=== PATIENT | male | born 1960 | race Caucasian/White ===

== ENCOUNTER 2017-10-21 15:43 | Inpatient (IN) | payer OTHER ==
[~2017-10-21] VITALS: Ht 177.8 cm; Wt 108.7 kg
[2017-10-21 16:09] VITALS: BP 136/69; PULSE 103; PULSE 18; TEMP 98.7
[2017-10-21] MEDS ORDERED: VITAMIND3 5000 (17:31)
[2017-10-21] MEDS ORDERED: PRINIVIL20 MG PO (17:32)
[2017-10-21] MEDS ORDERED: GLUCOTROL10 MG PO (17:32)
[2017-10-21] MEDS ORDERED: GLUCOPHAGE1000 MG PO (17:33)
[2017-10-21 19:15] VITALS: BP 133/66; PULSE 92; TEMP 99.1
[2017-10-22] VITALS (11 sets, daily range): BP systolic 107–144; BP diastolic 50–70; PULSE 70–94; TEMP 98–98.7
[2017-10-22 06:56] LABS: HEMOGLOBIN 11.4 g/dl (13.5-18.0); MEAN CELL VOLUME 85 fl (80.0-100.0); MEAN CORPUSCULAR HEMOGLOBIN 28 pg (27.0-31.0); MEAN CORPUSCULAR HGB CONC 33 g/dl (33.0-37.0); MEAN PLATELET VOLUME 9.2 fl (7.4-10.4); PLATELET COUNT 405 K/mm3 (130-400); RED BLOOD COUNT 4.08 M/mm3 (4.20-5.60); REDCELL DISTRIBUTION WIDTH-CV 13.3 % (11.5-14.5)
[2017-10-22 07:01] LABS: HEMATOCRIT 34.5 % (42.0-52.0)
[2017-10-22 07:07] LABS: CALCIUM 8.9 mg/dL (8.4-10.2); CREATININE, serum 0.8 mg/dL (0.66-1.25); POTASSIUM 3.6 mmol/L (3.4-5.0)
[2017-10-22 07:11] LABS: MAGNESIUM 2.1 mg/dL (1.6-2.3)
[2017-10-22 07:41] LABS: C-REACTIVE PROTEIN 33.5 mg/dL (0.0-0.9)
[2017-10-22 07:48] LABS: BAND 6 % (0-10); LYMPHOCYTE 12 % (20.0-51.0); NEUTROPHILS 77 % (42.0-75.2); PLATELET ESTIMATE INCREASED (NORMAL)
[2017-10-23] VITALS (7 sets, daily range): BP systolic 111–130; BP diastolic 54–70; PULSE 60–77; TEMP 97.6–98.4
[2017-10-23 08:11] LABS: BASO # 0.1 (0.0-0.2); BASO % 0.6 % (0.0-2.0); EOS # 0.2 (0.0-0.7); EOS % 1.7 % (0-4.0); GRAN # 8.7 (1.4-6.5); GRAN % 72.4 % (42.2-75.2); HEMOGLOBIN 10.2 g/dl (13.5-18.0); LYMPH # 1.8 (1.2-3.4); MEAN CELL VOLUME 85 fl (80.0-100.0); MEAN CORPUSCULAR HEMOGLOBIN 27 pg (27.0-31.0); MEAN CORPUSCULAR HGB CONC 32 g/dl (33.0-37.0); MEAN PLATELET VOLUME 9.1 fl (7.4-10.4); MONO # 1.1 (0.1-0.6); PLATELET COUNT 393 K/mm3 (130-400); RED BLOOD COUNT 3.72 M/mm3 (4.20-5.60); REDCELL DISTRIBUTION WIDTH-CV 13.5 % (11.5-14.5)
[2017-10-23 08:13] LABS: HEMATOCRIT 31.6 % (42.0-52.0)
[2017-10-23 08:27] LABS: CALCIUM 8.5 mg/dL (8.4-10.2); CREATININE, serum 0.8 mg/dL (0.66-1.25); POTASSIUM 3.8 mmol/L (3.4-5.0)
[2017-10-24] VITALS (12 sets, daily range): BP systolic 106–160; BP diastolic 64–85; PULSE 60–67; TEMP 97.4–98.6
[2017-10-25 05:00] VITALS: BP 125/66; PULSE 59; TEMP 98.1
[2017-10-25 06:54] LABS: HEMOGLOBIN 10.6 g/dl (13.5-18.0); MEAN CELL VOLUME 85 fl (80.0-100.0); MEAN CORPUSCULAR HEMOGLOBIN 28 pg (27.0-31.0); MEAN CORPUSCULAR HGB CONC 32 g/dl (33.0-37.0); MEAN PLATELET VOLUME 9.1 fl (7.4-10.4); PLATELET COUNT 437 K/mm3 (130-400); RED BLOOD COUNT 3.85 M/mm3 (4.20-5.60); REDCELL DISTRIBUTION WIDTH-CV 13.6 % (11.5-14.5)
[2017-10-25 07:00] LABS: HEMATOCRIT 32.7 % (42.0-52.0)
[2017-10-25 07:06] VITALS: BP 131/68; PULSE 56; TEMP 97.6
[2017-10-25 07:08] LABS: C-REACTIVE PROTEIN 6.4 mg/dL (0.0-0.9); CALCIUM 8.3 mg/dL (8.4-10.2); CREATININE, serum 0.83 mg/dL (0.66-1.25); POTASSIUM 3.2 mmol/L (3.4-5.0)
[2017-10-25 07:55] LABS: BAND 2 % (0-10); EOSINOPHIL 1 % (0-4); LYMPHOCYTE 31 % (20.0-51.0); MYELOCYTE 2 % (0-0); NEUTROPHILS 62 % (42.0-75.2); PLATELET ESTIMATE INCREASED (NORMAL)
[2017-10-25 07:56] LABS: TOXIC GRANULATION PRESENT
[2017-10-25 11:41] VITALS: BP 158/84; PULSE 73
[2017-10-25] MEDS ORDERED: NORCO 325 MG-51 TAB PO (14:48)
[2017-10-25] MEDS ORDERED: ASPI325T6 PO (14:48)
[2017-10-25] MEDS ORDERED: ROCEPHIN 2GM VIAL21 IV (14:49)
[2017-10-25] MEDS ORDERED: CUBICIN 500MG500 MG IV (14:50)
== END 2017-10-25 17:10 | disposition home or self-care (01) | DRG 854 ==
LOC: SURG 15:43
PROVIDERS: Family Medicine; Nurse Practitioner Family; Orthopaedic Surgery; Physician Assistant
PROC: 0Y6P0Z1 Detachment at Right 1st Toe, High, Open Approach (ICD-10-PCS; principal; 2017-10-22 14:00)
PROC: 0JBQ0ZZ Excision of Right Foot Subcutaneous Tissue and Fascia, Open Approach (ICD-10-PCS; 2017-10-22 14:00)
PROC: 0JDQ0ZZ Extraction of Right Foot Subcutaneous Tissue and Fascia, Open Approach (ICD-10-PCS; 2017-10-24)
DX: A41.9 Sepsis, unspecified organism (principal); E11.52 Type 2 diabetes mellitus with diabetic peripheral angiopathy with gangrene; I96 Gangrene, not elsewhere classified; M86.171 Other acute osteomyelitis, right ankle and foot; E11.65 Type 2 diabetes mellitus with hyperglycemia; E11.69 Type 2 diabetes mellitus with other specified complication; I10 Essential (primary) hypertension
CPT/HCPCS: 99222-AI; 99231-AI; 99232-AI; A9284; A9585; C1751; J0690; J0696; J0878; J1815; J2405; J2543; J2704; J3010; J3370; J7030; J7050

== ENCOUNTER 2023-04-09 04:50 | Observation (INO) | payer OTHER ==
[~2023-04-09] VITALS: Ht 177.8 cm; Wt 102.0 kg
[2023-04-09] VITALS (7 sets, daily range): BP systolic 106–142; BP diastolic 61–84; PULSE 81–97; TEMP 98–98.3
[~2023-04-09 04:50] MED LIST: ASPI325T6 PO; CUBICIN 500MG500 MG IV; GLUCOPHAGE1000 MG PO; GLUCOTROL10 MG PO; NORCO 325 MG-51 TAB PO; PRINIVIL20 MG PO; ROCEPHIN 2GM VIAL21 IV; VITAMIND3 5000
[2023-04-09 05:50] LABS: BASO # 0.1 K/mm3 (0.0-0.2); BASO % 0.7 % (0.0-2.0); EOS # 0.2 K/mm3 (0.0-0.7); GRAN # 5.7 K/mm3 (1.4-6.5); GRAN % 74.2 % (42.2-75.2); HEMATOCRIT 38.9 % (42.0-52.0); LYMPH % 12.7 % (20.0-51.0); MEAN CELL VOLUME 84 fl (80.0-100.0); MEAN CORPUSCULAR HEMOGLOBIN 28 pg (27-31); MEAN CORPUSCULAR HGB CONC 33 g/dl (33.0-37.0); MEAN PLATELET VOLUME 10.3 fl (7.4-10.4); MONO # 0.8 K/mm3 (0.1-0.6); PLATELET COUNT 235 K/mm3 (130-400); RED BLOOD COUNT 4.66 M/mm3 (4.20-5.60); REDCELL DISTRIBUTION WIDTH-CV 12.9 % (11.5-14.5)
[2023-04-09 06:09] LABS: ALBUMIN 3.1 gm/dL (3.4-4.8); BILIRUBIN,TOTAL 0.6 mg/dL (0.2-1.2); CALCIUM 9.3 mg/dL (8.4-10.2); CREATININE, serum 1.3 mg/dL (0.72-1.25); POTASSIUM 4.5 mmol/L (3.5-4.5); TOTAL PROTEIN 7.4 gm/dL (6.2-8.1)
[2023-04-09] MEDS ORDERED: PRIL40 PO (09:47)
--- NOTE | 2023-04-09 10:00 | NUR ---
Pt arrived to the floor from ED. Pt is alert and oriented. Wound to right foot on his sole. Approximately [address] Kothari consulted and notified of pt arrival. Oriented pt to his room and educated on room service
--- NOTE | 2023-04-09 11:24 | NUR ---
Dr Kothari has been in to see patient. He did clean wound and apply dressing. I did remove the dressing for a wound culture. Wound was dry during this, culture sent and antibiotics started. Right foot redressed. Discussed with pt that he is non weight bearing to the right foot. Stated that we would bring in crutches and walker for him to use/try. Educated that he needs to notify nursing when he needs to get up so that we can assist. Pt is pleasent and is nervous about the outcome of his foot.
--- NOTE | 2023-04-09 12:00 | NUR ---
Med rec complete, but pt reports that he has not taken his medications in over a year. Pt reports he only take prilosec OTC
--- NOTE | 2023-04-09 18:06 | NUR ---
Pt doing okay, reports minimal pain to his right foot. Pt did get up to the restroom using crutches, but was a little unsteady. Had him use a walker going back to bed and he did much better. Pt is compliant with using his call light when he needs to get up. No needs, will continue to monitor
--- NOTE | 2023-04-09 20:01 | NUR ---
report received from francesca rasheed. pt resting in bed finishing dinner. pt denies pain at this time. call light in place. all needs met at this time.
--- NOTE | 2023-04-09 21:29 | NUR ---
shift assessment complete, see documentation. pt denies pain at this time. abx still running to right ac iv, tolerating well. bs steadily decreasing from admit bs. tolerated insulin administration well. call light in place. all needs met at this time.
[2023-04-10] VITALS (11 sets, daily range): BP systolic 101–127; BP diastolic 62–80; PULSE 64–83; TEMP 98.1–98.2
[2023-04-10 05:35] LABS: BASO # 0.1 K/mm3 (0.0-0.2); BASO % 0.7 % (0.0-2.0); EOS # 0.2 K/mm3 (0.0-0.7); GRAN # 4.5 K/mm3 (1.4-6.5); HEMOGLOBIN 11.6 g/dl (13.5-18.0); LYMPH # 1.4 K/mm3 (1.2-3.4); LYMPH % 20.1 % (20.0-51.0); MEAN CELL VOLUME 83 fl (80.0-100.0); MEAN CORPUSCULAR HEMOGLOBIN 28 pg (27-31); MEAN CORPUSCULAR HGB CONC 33 g/dl (33.0-37.0); MONO # 0.9 K/mm3 (0.1-0.6); MONO % 12.9 % (1.7-9.3); PLATELET COUNT 247 K/mm3 (130-400); RED BLOOD COUNT 4.19 M/mm3 (4.20-5.60); REDCELL DISTRIBUTION WIDTH-CV 12.8 % (11.5-14.5)
[2023-04-10 05:44] LABS: HEMATOCRIT 34.7 % (42.0-52.0)
[2023-04-10 05:56] LABS: ALBUMIN 2.6 gm/dL (3.4-4.8); CALCIUM 9.3 mg/dL (8.4-10.2); CREATININE, serum 1.31 mg/dL (0.72-1.25); MAGNESIUM 1.8 mg/dL (1.6-2.6); PHOSPHOROUS 3.7 mg/dL (2.3-4.7); POTASSIUM 4.1 mmol/L (3.5-4.5)
--- NOTE | 2023-04-10 08:45 | NUR ---
Pt. laying in bed. Pt. is A&OX3, assessment complete. INT to rt. ac patent. Dressing to rt. foot patent. Pt. denies pain or other needs, call light within reach.
--- NOTE | 2023-04-10 11:33 | NUR ---
D: Security Intelligence Analyst visit during Security Intelligence Analyst rounds. Patient accepted visit. Patient is a member of [employer]. Security Intelligence Analyst knows the Patient's Chemist Instrumentation. Patient listens to [employer] bible devotionals. A: Patient is using the time in the hospital to reflect on his linda journey and his family dynamics. Patient is expecting a visit from his Chemist Instrumentation today if the weather does not prevent the visit. Patient desires closer relationship with God. P: Security Intelligence Analyst provided supportive listening and prayer. Security Intelligence Analyst recommended to Patient to listen to actual bible instead of devotionals. Recommended the Gospel of [employer] or [place] for a place to begin. Patient responded positively to recommendation.
--- NOTE | 2023-04-10 15:21 | NUR ---
SW met with patient to complete intake and discuss discharge planning. Patient informed SW that he does live in [place] alone, and his NOK is daughter Pauline Kapadia [phone]. No DPOA at this time; was provided information and declined at this time. Patient reports that he is independent with ALDs and at this time is not currently using any DME's. 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 Patient shared that his pharmacy of choice is [facility]. Patient is excepting to discharge to his residence, pending any further medical recommendations at this time.
--- NOTE | 2023-04-10 20:25 | NUR ---
report received from peaec rasheed. pt resting in bed watching tv. pt denies pain. abx running to right ac iv, pt tolerating. call light in reach. all needs met at this time.
--- NOTE | 2023-04-10 22:18 | NUR ---
shift assessment complete, see documentation. pt denies pain. right foot drsg cdi. zosyn continues running to right ac, tolerating well. call light in place. all needs met at this time.
[2023-04-11] VITALS (8 sets, daily range): BP systolic 106–146; BP diastolic 66–90; PULSE 62–78; TEMP 98–98.3
--- NOTE | 2023-04-11 05:15 | NUR ---
pt continues to deny pain. bs have remained within normal range overnight tonight. call light in reach. all needs met at this time.
[2023-04-11 05:35] LABS: BASO % 0.5 % (0.0-2.0); EOS # 0.2 K/mm3 (0.0-0.7); EOS % 3.9 % (0.0-4.0); GRAN # 3.3 K/mm3 (1.4-6.5); GRAN % 57.7 % (42.2-75.2); HEMOGLOBIN 11.9 g/dl (13.5-18.0); LYMPH # 1.4 K/mm3 (1.2-3.4); LYMPH % 25.2 % (20.0-51.0); MEAN CELL VOLUME 84 fl (80.0-100.0); MEAN CORPUSCULAR HEMOGLOBIN 27 pg (27-31); MEAN CORPUSCULAR HGB CONC 32 g/dl (33.0-37.0); MEAN PLATELET VOLUME 9.9 fl (7.4-10.4); MONO # 0.7 K/mm3 (0.1-0.6); MONO % 12.3 % (1.7-9.3); PLATELET COUNT 277 K/mm3 (130-400); RED BLOOD COUNT 4.38 M/mm3 (4.20-5.60); REDCELL DISTRIBUTION WIDTH-CV 12.8 % (11.5-14.5)
[2023-04-11 05:46] LABS: HEMATOCRIT 36.9 % (42.0-52.0)
[2023-04-11 05:53] LABS: ALBUMIN 2.6 gm/dL (3.4-4.8); CREATININE, serum 1.01 mg/dL (0.72-1.25); MAGNESIUM 1.7 mg/dL (1.6-2.6); PHOSPHOROUS 3.7 mg/dL (2.3-4.7); POTASSIUM 3.9 mmol/L (3.5-4.5)
--- NOTE | 2023-04-11 09:15 | NUR ---
Pt. sitting up in bed. Pt. is A&OX3, assessment complete. INT to rt. ac patent. Pt. wanting to take a shower, IV site and rt. foot covered. Pt. showered and dressed independently. INT and foot uncovered. Dressing CDI. Pt. denies further needs, call light within reach.
[2023-04-11] MEDS ORDERED: AMOXICILLIN 8751 TAB PO (14:34)
--- NOTE | 2023-04-11 15:35 | NUR ---
Pt. ready for discharge. INT discontinued from rt. ac. Pt. dressed. Reviewed and gave discharge paperwork to the pt. Pt. denies questions. Pt. escorted out by wheel chair.
== END 2023-04-11 15:37 | disposition home or self-care (01) ==
LOC: COL.ER 04:50 → SURG 07:58 → COL.ER 07:58 → SURG 07:59
PROVIDERS: Emergency Medicine; ADMIT Internal Medicine
DX: E11.621 Type 2 diabetes mellitus with foot ulcer (principal); E11.65 Type 2 diabetes mellitus with hyperglycemia; E11.69 Type 2 diabetes mellitus with other specified complication; E11.610 Type 2 diabetes mellitus with diabetic neuropathic arthropathy; E11.51 Type 2 diabetes mellitus with diabetic peripheral angiopathy without gangrene; M86.9 Osteomyelitis, unspecified; L97.519 Non-pressure chronic ulcer of other part of right foot with unspecified severity; E11.42 Type 2 diabetes mellitus with diabetic polyneuropathy; I10 Essential (primary) hypertension; K21.9 Gastro-esophageal reflux disease without esophagitis; Z79.84 Long term (current) use of oral hypoglycemic drugs; Z79.899 Other long term (current) drug therapy; Z79.82 Long term (current) use of aspirin
CPT/HCPCS: G0378; J1644; J1815; J2543; J7030; Q3014